=== PATIENT | male | born 1965 | race Caucasian/White ===

== ENCOUNTER 2020-01-11 01:54 | Emergency (ER) | payer BC ==
[2020-01-11] MEDS ORDERED: ONDANSETRON 4 MG/2 ML VIAL IVP STA (02:26)
[2020-01-11] MEDS ORDERED: HYDROmorphone 1 MG/ML 1 ML SYRINGE IVP STA (02:26)
[2020-01-11] MEDS ORDERED: SODIUM CHLORIDE 0.9% 1,000 ML IV STA (02:26)
--- NOTE | 2020-01-11 02:45 | ED ---
General Adult HPI - General Chief complaint: Abdominal Pain Stated complaint: Rt flank pain Time Seen by Provider: 01/11/20 02:20 Source: patient, family Mode of arrival: wheelchair Limitations: no limitations - History of Present Illness Initial comments: 54-year-old male patient presents to the emergency department today for evaluation of right lower chest pain with radiation through to the back. Patient states that this pain started this evening. Patient states it hurts to take a deep breath, moves, or laughs. He denies any nausea or vomiting with this. Denies fever or chills. Denies ever having similar pain to this. Patient does admit to drinking alcohol today. He did experience a fall yesterday and does have a bruise to his right side but states that the area is not tender and it did not her last evening. He is a former smoker. Has had umbilical hernia surgery in the past but no other abdominal surgeries. Denies known history of abdominal aortic or thoracic aneurysm. Patient denies any recent rash, fever, chills, cough, diarrhea, constipation, back pain, numbness, tingling, dizziness, weakness, hematuria, dysuria, urinary urgency, urinary frequency, headache, visual changes, or any other complaints. - Related Data Allergies Allergy/AdvReac Type Severity Reaction Status Date / Time No Known Allergies Allergy Verified 01/11/20 02:03 Review of Systems ROS Statement: Those systems with pertinent positive or pertinent negative responses have been documented in the HPI. ROS Other: All systems not noted in ROS Statement are negative. Past Medical History Past Medical History: Hypertension History of Any Multi-Drug Resistant Organisms: None Reported Past Surgical History: Hernia Repair Past Psychological History: No Psychological Hx Reported Smoking Status: Former smoker Past Alcohol Use History: Daily, Occasional Past Drug Use History: None Reported General Exam Limitations: no limitations General appearance: alert, in no apparent distress, other (This is a well- developed, well-nourished adult male patient in mild distress related to pain. Vital signs upon presentation are temperature 97.2F, pulse 94, respirations 28, blood pressure 96/65, pulse ox 99% on room air.) ENT exam: Present: normal exam, normal oropharynx, mucous membranes moist Respiratory exam: Present: normal lung sounds bilaterally. Absent: respiratory distress, wheezes, rales, rhonchi, stridor Cardiovascular Exam: Present: regular rate, normal rhythm, normal heart sounds. Absent: systolic murmur, diastolic murmur, rubs, gallop, clicks GI/Abdominal exam: Present: soft, tenderness (Midepigastric), normal bowel sounds. Absent: distended, guarding, rebound, rigid Neurological exam: Present: alert, oriented X3, CN II-XII intact Psychiatric exam: Present: normal affect, normal mood Skin exam: Present: warm, dry, intact, normal color. Absent: rash Course Vital Signs 01/11/20 01/11/20 01/11/20 02:00 03:04 03:30 Temperature 97.2 F L Pulse Rate 94 79 67 Respiratory 28 H 18 18 Rate Blood Pressure 96/65 84/40 91/63 O2 Sat by Pulse 99 96 100 Oximetry 01/11/20 03:45 Temperature Pulse Rate 94 Respiratory 18 Rate Blood Pressure 105/54 O2 Sat by Pulse 98 Oximetry EKG Findings - EKG Comments: EKG Findings:: EKG obtained at 0237 shows normal sinus rhythm with a prolonged QT interval. Ventricular rate is 76, OH interval 146, QRS duration 98, QT 410, QTC 461. Medical Decision Making - Medical Decision Making 54-year-old male patient presents the emergency department today for evaluation of right upper abdominal/right lower chest pain. Patient evaluation did reveal midepigastric tenderness. Patient did seem quite uncomfortable upon arrival. IV was inserted and labs were obtained. White blood cell count is 17.6, neutrophils 13.9, lactic acid 2.5, troponin negative, urinalysis negative. Upon arrival patient was hypotensive. We did obtain CT angiography of the thoracic, abdominal, pelvic aorta which was negative for evidence of aneurysm or dissection, CT was further negative for any acute abnormalities. Patient was given 2 L bolus, IV pain medication. Upon reevaluation he reported that pain was only minimally improved. I did discuss all of his results and recommended observation admission. Patient had a discussion with his and decided to leave AGAINST MEDICAL ADVICE. I did discuss with him the nature of his labs and blood pressure were concerning for severe infection and possibly sepsis. Also given his location of pain we did discuss possible cardiac origins. We did discuss severe illness or as a risk of his leaving. Patient did verbalize understanding and will sign AGAINST MEDICAL ADVICE form. He is instructed to follow up with his primary care physician for recheck as soon as possible. We did discuss return parameters in detail. - Lab Data Result diagrams: 01/11/20 02:38 01/11/20 02:38 Lab Results 01/11/20 01/11/20 01/11/20 Range/Units 02:38 02:38 02:38 WBC 17.6 H (3.8-10.6) k/uL RBC 5.20 (4.30-5.90) m/uL Hgb 17.1 (13.0-17.5) gm/dL Hct 51.1 (39.0-53.0) % MCV 98.3 (80.0-100.0) fL MCH 33.0 (25.0-35.0) pg MCHC 33.5 (31.0-37.0) g/dL RDW 12.9 (11.5-15.5) % Plt Count 253 (150-450) k/uL Neutrophils % 79 % Lymphocytes % 14 % Monocytes % 5 % Eosinophils % 1 % Basophils % 0 % Neutrophils # 13.9 H (1.3-7.7) k/uL Lymphocytes # 2.5 (1.0-4.8) k/uL Monocytes # 0.9 (0-1.0) k/uL Eosinophils # 0.2 (0-0.7) k/uL Basophils # 0.1 (0-0.2) k/uL PT 10.1 (9.0-12.0) sec INR 1.0 (<1.2) APTT 23.5 (22.0-30.0) sec Sodium (137-145) mmol/L Potassium (3.5-5.1) mmol/L Chloride (98-107) mmol/L Carbon Dioxide (22-30) mmol/L Anion Gap mmol/L BUN (9-20) mg/dL Creatinine (0.66-1.25) mg/dL Est GFR (CKD-EPI)AfAm (>60 ml/min/1.73 sqM) Est GFR (CKD-EPI)NonAf (>60 ml/min/1.73 sqM) Glucose (74-99) mg/dL Plasma Lactic Acid Greg (0.7-2.0) mmol/L Calcium (8.4-10.2) mg/dL Total Bilirubin (0.2-1.3) mg/dL AST (17-59) U/L ALT (4-49) U/L Alkaline Phosphatase (38-126) U/L Troponin I (0.000-0.034) ng/mL Total Protein (6.3-8.2) g/dL Albumin (3.5-5.0) g/dL Amylase (30-110) U/L Lipase (23-300) U/L Urine Color Yellow Urine Appearance Clear (Clear) Urine pH 6.5 (5.0-8.0) Ur Specific [place] 1.022 (1.001-1.035) Urine Protein 1+ H (Negative) Urine Glucose (UA) Negative (Negative) Urine Ketones Negative (Negative) Urine Blood Negative (Negative) Urine Nitrite Negative (Negative) Urine Bilirubin Negative (Negative) Urine Urobilinogen <2.0 (<2.0) mg/dL Ur Leukocyte Esterase Negative (Negative) Urine WBC 2 (0-5) /hpf Hyaline Casts 5 H (0-2) /lpf Urine Mucus Rare H (None) /hpf 01/11/20 01/11/20 01/11/20 Range/Units 02:38 02:38 02:38 WBC (3.8-10.6) k/uL RBC (4.30-5.90) m/uL Hgb (13.0-17.5) gm/dL Hct (39.0-53.0) % MCV (80.0-100.0) fL MCH (25.0-35.0) pg MCHC (31.0-37.0) g/dL RDW (11.5-15.5) % Plt Count (150-450) k/uL Neutrophils % % Lymphocytes % % Monocytes % % Eosinophils % % Basophils % % Neutrophils # (1.3-7.7) k/uL Lymphocytes # (1.0-4.8) k/uL Monocytes # (0-1.0) k/uL Eosinophils # (0-0.7) k/uL Basophils # (0-0.2) k/uL PT (9.0-12.0) sec INR (<1.2) APTT (22.0-30.0) sec Sodium 137 (137-145) mmol/L Potassium 4.2 (3.5-5.1) mmol/L Chloride 100 (98-107) mmol/L Carbon Dioxide 25 (22-30) mmol/L Anion Gap 12 mmol/L BUN 16 (9-20) mg/dL Creatinine 1.02 (0.66-1.25) mg/dL Est GFR (CKD-EPI)AfAm >90 (>60 ml/min/1.73 sqM) Est GFR (CKD-EPI)NonAf 83 (>60 ml/min/1.73 sqM) Glucose 104 H (74-99) mg/dL Plasma Lactic Acid Greg 2.5 H* (0.7-2.0) mmol/L Calcium 9.2 (8.4-10.2) mg/dL Total Bilirubin 0.5 (0.2-1.3) mg/dL AST 32 (17-59) U/L ALT 37 (4-49) U/L Alkaline Phosphatase 71 (38-126) U/L Troponin I <0.012 (0.000-0.034) ng/mL Total Protein 7.8 (6.3-8.2) g/dL Albumin 4.9 (3.5-5.0) g/dL Amylase 50 (30-110) U/L Lipase 72 (23-300) U/L Urine Color Urine Appearance (Clear) Urine pH (5.0-8.0) Ur Specific [place] (1.001-1.035) Urine Protein (Negative) Urine Glucose (UA) (Negative) Urine Ketones (Negative) Urine Blood (Negative) Urine Nitrite (Negative) Urine Bilirubin (Negative) Urine Urobilinogen (<2.0) mg/dL Ur Leukocyte Esterase (Negative) Urine WBC (0-5) /hpf Hyaline Casts (0-2) /lpf Urine Mucus (None) /hpf Disposition Clinical Impression: Abdominal pain, Hypotension, Leukocytosis Disposition: Left Against Medical Advice Condition: Fair Instructions (If sedation given, give patient instructions): Leukocytosis (ED), Hypotension (ED), Abdominal Pain (ED) Additional Instructions: Follow up with your physician as soon as possible. Return immediately for any new, worsening, or concerning symptoms. Is patient prescribed a controlled substance at d/c from ED?: No Referrals: Ludwin Thompson DO [Primary Care Provider] - 1-2 days Time of Disposition: 04:28
--- NOTE | 2020-01-11 02:51 | XR ---
EXAMINATION TYPE: XR chest 2V DATE OF EXAM: 01/11/2020 COMPARISON: NONE HISTORY: Chest pain TECHNIQUE: 2 views FINDINGS: There is no heart failure nor confluent pneumonic infiltrate. Costophrenic angles are clear . Heart size is normal. There are chest leads. Bony thorax is intact. IMPRESSION: No active cardiopulmonary disease. Normal heart.
[2020-01-11 03:04] LABS: Basophils # (A) 0.1 k/uL (0-0.2); Basophils % (A) 0 %; Eosinophils # (A) 0.2 k/uL (0-0.7); Eosinophils % (A) 1 %; HCT 51.1 % (39.0-53.0); HGB 17.1 gm/dL (13.0-17.5); Lymphocytes # (A) 2.5 k/uL (1.0-4.8); Lymphocytes % (A) 14 %; MCHC 33.5 g/dL (31.0-37.0); MCV 98.3 fL (80.0-100.0); Mean Platelet Volume 7.9; Monocytes # (A) 0.9 k/uL (0-1.0); Monocytes % (A) 5 %; Neutrophils # (A) 13.9 k/uL (1.3-7.7); Neutrophils % (A) 79 %; Platelet Count 253 k/uL (150-450); RDW 12.9 % (11.5-15.5); WBC 17.6 k/uL (3.8-10.6)
[2020-01-11 03:09] LABS: Partial Thromboplastin Time 23.5 sec (22.0-30.0); Prothrombin Time 10.1 sec (9.0-12.0)
[2020-01-11] MEDS ORDERED: SODIUM CHLORIDE 0.9% 1,000 ML IV ONE ×2 (03:10→03:41)
[2020-01-11 03:25] VITALS: RESP 18
[2020-01-11 03:35] LABS: ALT 37 U/L (4-49); AST 32 U/L (17-59); African American GFR (CKD) >90 (>60 ml/min/1.73 sqM); Albumin 4.9 g/dL (3.5-5.0); Alkaline Phosphatase 71 U/L (38-126); Amylase 50 U/L (30-110); Anion Gap 12 mmol/L; Blood Urea Nitrogen 16 mg/dL (9-20); Calcium 9.2 mg/dL (8.4-10.2); Carbon Dioxide 25 mmol/L (22-30); Chloride 100 mmol/L (98-107); Glucose 104 mg/dL (74-99); Non-African American GFR(CKD) 83 (>60 ml/min/1.73 sqM); Potassium 4.2 mmol/L (3.5-5.1); Sodium 137 mmol/L (137-145); Total Bilirubin 0.5 mg/dL (0.2-1.3); Total Protein 7.8 g/dL (6.3-8.2)
--- NOTE | 2020-01-11 03:56 | CT ---
EXAMINATION TYPE: CT angio thor/abd pel aorta DATE OF EXAM: 01/11/2020 COMPARISON: None HISTORY: right flank pain CT DLP: 2443.10 mGycm Automated exposure control for dose reduction was used. CONTRAST: Performed with IV Contrast, patient injected with 100 mL of Isovue 370. Images were obtained from the thoracic inlet to the floor the pelvis without and with IV contrast and 3-D post processed images. FINDINGS: There is normal branching pattern of the great vessels on the aortic arch. There is no aortic aneurys m or dissection. The pulmonary arteries appear intact. There is no pericardial effusion. Heart appear s borderline enlarged. There is no pleural effusion. There is subsegmental atelectasis at the posteri or lung bases. There is small hiatal hernia. The stomach is intact. The liver spleen pancreas gallbladder appear nor mal. Bile ducts are not dilated. Kidneys show satisfactory contrast opacification. There is no hydron ephrosis. Abdominal aorta is intact. There is patency of the celiac artery and superior mesenteric artery and b oth renal arteries. There is no evidence of stenosis. There is bilateral arterial flow in the iliac a rteries. There is no evidence of stenosis. There is no aortic aneurysm. There is no dissection. Bony structures are intact. There is no ascites. There is no sign of free air. There is no mesenteric louise a. IMPRESSION: Negative CT angiogram of the chest abdomen pelvis. No evidence of aortic aneurysm or dissection. No e vidence of stenosis.
[2020-01-11 04:24] LABS: Appearance,Urine Clear (Clear); Bilirubin,Urine Negative (Negative); Blood,Urine Negative (Negative); Color,Urine Yellow; Glucose,Urine (UA) Negative (Negative); Hyaline Casts,Urine 5 /lpf (0-2); Ketones,Urine Negative (Negative); Leukocyte Esterase,Urine Negative (Negative); Mucus,Urine Rare /hpf; Nitrite,Urine Negative (Negative); PH, Urine 6.5 (5.0-8.0); Protein,Urine 1+ (Negative); Specific Gravity,Urine 1.022 (1.001-1.035); Urobilinogen,Urine <2.0 mg/dL (<2.0); WBC,Urine 2 /hpf (0-5)
[2020-01-11 05:06] VITALS: BP 122/101; PULSE 84; TEMP 98.9
== END 2020-01-11 05:01 | disposition left against medical advice (07) ==
LOC: EC 01:54
DX: R10.11 Right upper quadrant pain (principal); D72.829 Elevated white blood cell count, unspecified; R07.9 Chest pain, unspecified; R10.816 Epigastric abdominal tenderness; I95.9 Hypotension, unspecified; Z87.891 Personal history of nicotine dependence; Z53.29 Procedure and treatment not carried out because of patient's decision for other reasons
CPT/HCPCS: 36415; 93005; 80053; 82150; 83605; 83690; 84484; 85025; 85610; 85730; 81001; 71046; 71275; 74174; 99284; 96374; 96375; 96361 ×2; J2405; J1170; Q9967

== ENCOUNTER 2020-05-29 22:30 | Emergency (ER) | payer BC ==
--- NOTE | 2020-05-29 23:13 | ED ---
Fall HPI - General Chief Complaint: Fall Stated Complaint: slip & fall/shoulder pain Time Seen by Provider: 05/29/20 22:40 Source: patient Mode of arrival: ambulatory - History of Present Illness Initial Comments: This patient is a 55-year-old man who presents to be evaluated after he slipped and fell on the ice. The patient states that he landed mainly on his back and right shoulder. He complains of a little bit of neck and back pain but states most his symptoms are related to his right shoulder. He is having pain with any attempt to move his right arm. He denies weakness or numbness to the hand. Patient states that when he tried to move his right arm he felt a crunching sensation. MD Complaint: fall -: minutes(s) Fall From: standing When Fall Occurred: just prior to arrival Fall Witnessed: yes, by family Place Fall Occurred: street Loss of Consciousness: none Prolonged Down Time?: no Symptoms Prior to Fall: none Location: neck, back Location - Extremities: Right: Shoulder Severity: moderate Quality: sharp Context: tripped/slipped - Related Data Allergies Allergy/AdvReac Type Severity Reaction Status Date / Time ondansetron [From Zofran] Allergy Unknown Verified 05/29/20 23:01 Review of Systems ROS Statement: Those systems with pertinent positive or pertinent negative responses have been documented in the HPI. ROS Other: All systems not noted in ROS Statement are negative. Constitutional: Denies: fever, chills Respiratory: Denies: cough, dyspnea Cardiovascular: Denies: chest pain, palpitations Gastrointestinal: Denies: abdominal pain, vomiting Genitourinary: Denies: dysuria, testicular pain Musculoskeletal: Reports: as per HPI, back pain, arthralgia Skin: Denies: rash Neurological: Denies: headache, weakness, numbness, paresthesias Past Medical History Past Medical History: Hypertension History of Any Multi-Drug Resistant Organisms: None Reported Past Surgical History: Hernia Repair Past Psychological History: No Psychological Hx Reported Smoking Status: Former smoker Past Alcohol Use History: Daily Past Drug Use History: None Reported General Exam Limitations: no limitations General appearance: alert, in no apparent distress Head exam: Present: atraumatic, normocephalic Eye exam: Present: normal appearance. Absent: scleral icterus, conjunctival injection Neck exam: Present: normal inspection, tenderness (There is some mild tenderness at the base of the cervical spine), full ROM Respiratory exam: Present: normal lung sounds bilaterally. Absent: respiratory distress, wheezes, rales, rhonchi, stridor, chest wall tenderness Cardiovascular Exam: Present: regular rate, normal rhythm, normal heart sounds. Absent: systolic murmur, diastolic murmur, rubs, gallop GI/Abdominal exam: Present: soft. Absent: distended, tenderness, guarding, rebound, rigid, mass Extremities exam: Present: normal inspection, tenderness, normal capillary refill. Absent: full ROM, pedal edema, calf tenderness Back exam: Present: normal inspection, vertebral tenderness. Absent: CVA tenderness (R), CVA tenderness (L) Neurological exam: Present: alert Skin exam: Present: warm, dry, intact, normal color. Absent: rash Course Vital Signs 05/29/20 22:32 Temperature 97.9 F Pulse Rate 73 Respiratory 18 Rate Blood Pressure 158/89 O2 Sat by Pulse 99 Oximetry Disposition Clinical Impression: Fall, Shoulder injury Disposition: HOME SELF-CARE Condition: Good Instructions (If sedation given, give patient instructions): Shoulder Dislocation (ED), Acromioclavicular Separation (ED) Is patient prescribed a controlled substance at d/c from ED?: No Referrals: Ludwin Thompson DO [Primary Care Provider] - 1-2 days Mario Garcia MD [STAFF PHYSICIAN] - 1-2 days
--- NOTE | 2020-05-29 23:41 | XR ---
EXAMINATION TYPE: XR shoulder complete RT DATE OF EXAM: 05/29/2020 COMPARISON: NONE HISTORY: Fall. Pain. TECHNIQUE: 4 views FINDINGS: I see no fracture nor dislocation. Glenohumeral joint is anatomic. There are no pathologic calcifications. IMPRESSION: Negative right shoulder exam.
--- NOTE | 2020-05-29 23:42 | XR ---
EXAMINATION TYPE: XR thoracic spine complete DATE OF EXAM: 05/29/2020 COMPARISON: NONE HISTORY: Fall. Pain. TECHNIQUE: 3 views FINDINGS: Thoracic vertebra have normal alignment. There is spurring in the lower thoracic spine. I s ee no compression fracture. There is no paraspinal mass. Posterior elements are intact. IMPRESSION: Mild spondylotic changes in the lower thoracic spine. No fracture.
--- NOTE | 2020-05-29 23:44 | CT ---
EXAMINATION TYPE: CT cervical spine wo con DATE OF EXAM: 05/29/2020 COMPARISON: None HISTORY: pain CT DLP: 898.7 mGycm Automated exposure control for dose reduction was used. Images obtained from the skull base to T1 vertebra without contrast. There is mild straightening of the vertebra. There is anterior spurring from C3 to C7. Facet joints a re intact. There is no evidence of a compression fracture. There is no paraspinal mass. Prevertebral soft tissues are intact. The skull base is intact. There is normal aeration of the mastoid sinuses. IMPRESSION: Mild spondylotic changes. No fracture seen.
[2020-05-30 00:23] VITALS: BP 142/81; PULSE 71; RESP 16; TEMP 98
== END 2020-05-30 00:14 | disposition home or self-care (01) ==
LOC: EC 22:30
DX: S49.91XA Unspecified injury of right shoulder and upper arm, initial encounter (principal); M54.2 Cervicalgia; M54.9 Dorsalgia, unspecified; Z88.8 Allergy status to other drugs, medicaments and biological substances; Z87.891 Personal history of nicotine dependence; W00.0XXA Fall on same level due to ice and snow, initial encounter
CPT/HCPCS: 72072; 72125; 99284

== ENCOUNTER → 2021-08-13 | Outpatient (CLI) | payer BC ==
[2021-08-13 13:18] LABS: Partial Thromboplastin Time 23.7 sec (22.0-30.0); Prothrombin Time 10.5 sec (9.0-12.0)
[2021-08-13 19:12] LABS: HCT 48.5 % (39.6-50.0); MCH 31.5 pg (27.0-32.0); MCV 95.5 fL (80.0-97.0); Mean Platelet Volume 10.9 fL (9.5-12.2); NRBC Per 100 WBC 0 /100 WBCS (0.0-0.0); Platelet Count 209 X 10*3/uL (140-440); RBC 5.08 X 10*6/uL (4.40-5.60); WBC 7.26 X 10*3/uL (4.50-10.00)
[2021-08-13 19:24] LABS: African American GFR (CKD) 116.5 (60.0-200.0); Albumin 4.7 g/dL (3.8-4.9); Albumin/Globulin Ratio 1.66 (1.60-3.17); Anion Gap 13.8 mmol/L (10.00-18.00); Appearance,Urine Clear (Clear); BUN/Creat Ratio 18.55 Ratio (12.00-20.00); Bilirubin,Urine Negative (Negative); Blood Urea Nitrogen 14.6 mg/dL (9.0-27.0); Blood,Urine Negative (Negative); Calcium 9.8 mg/dL (8.7-10.3); Carbon Dioxide 24.4 mmol/L (20.0-27.5); Color,Urine Yellow (Yellow); Globulin 2.8 g/dL (1.6-3.3); Ketones,Urine Negative (Negative); Nitrite,Urine Negative (Negative); Non-African American GFR(CKD) 100.5 (60.0-200.0); PH, Urine 5.5 (5.0-8.0); Potassium 3.8 mmol/L (3.5-5.5); Specific Gravity,Urine 1.012 (1.001-1.030); Total Bilirubin 0.6 mg/dL (0.30-1.20); Total Protein 7.6 g/dL (6.2-8.2); Urobilinogen,Urine 0.2 (0.2,1.0)
== END | disposition home or self-care (01) ==
LOC: LABPAT 10:02
PROVIDERS: ATTEND Orthopaedic Surgery Hand Surgery
DX: Z01.812 Encounter for preprocedural laboratory examination (principal); I10 Essential (primary) hypertension
CPT/HCPCS: 36415; 80053; 81003; 85027; 85610; 85730; 87070

== ENCOUNTER → 2023-11-28 | Outpatient (CLI) | payer BC | END | disposition home or self-care (01) | LOC: LABWHC1 12:23 | PROVIDERS: ATTEND Orthopaedic Surgery Hand Surgery | DX: Z01.812 Encounter for preprocedural laboratory examination (principal); M16.12 Unilateral primary osteoarthritis, left hip | CPT/HCPCS: 87070 ==